=== PATIENT | male | born 1960 | race Caucasian/White ===

== ENCOUNTER 2019-03-06 13:25 | Emergency (ER) | payer OTHER ==
--- NOTE | 2019-03-06 14:59 | ER Document Report ---
HPI - HPI Patient complains to provider of: Shoulder injury Time Seen by Provider: 03/06/19 14:58 Onset: Just prior to arrival Onset/Duration: Sudden Pain Level: Denies Context: Patient states that he had been drinking beer today and was walking up some stairs and tripped falling landing on his right shoulder. Patient with tenderness to right clavicle. Patient denies any head injury, chest pain, loss of consciousness, nausea or vomiting. Patient states he was drinking because he just found out that his father today. Patient denies any other injury. Patient declines needing any pain medication at this time. Associated Symptoms: Other - Clavicle pain. denies: Chest pain, Productive cough, Headache, Vomiting Exacerbated by: Movement Relieved by: Denies Similar symptoms previously: No Recently seen / treated by doctor: No - ROS ROS below otherwise negative: Yes Systems Reviewed and Negative: Yes All other systems reviewed and negative - NEURO Neurology: DENIES: Headache, Weakness - CARDIOVASCULAR Cardiovascular: DENIES: Chest pain - RESPIRATORY Respiratory: DENIES: Trouble Breathing, Coughing - GASTROINTESTINAL Gastrointestinal: DENIES: Nausea, Patient vomiting - MUSCULOSKELETAL Musculoskeletal: REPORTS: Extremity pain - Right clavicle. DENIES: Back Pain, Neck Pain - DERM Skin Color: Normal Skin Problems: None Past Medical History - General Information source: Patient - Social History Smoking Status: Former Smoker Chew tobacco use (# tins/day): No Frequency of alcohol use: Occasional Drug Abuse: None Family History: Reviewed & Not Pertinent Patient has suicidal ideation: No Patient has homicidal ideation: No Endocrine Medical History: Reports: Hx Diabetes Mellitus Type 2 Renal/ Medical History: Denies: Hx Peritoneal Dialysis Surgical Hx: Negative Vertical Provider Document - CONSTITUTIONAL Agree With Documented VS: Yes Exam Limitations: No Limitations General Appearance: WD/WN, No Apparent Distress - INFECTION CONTROL TRAVEL OUTSIDE OF THE [place] IN LAST 30 DAYS: No - HEENT HEENT: Atraumatic, Normocephalic - NECK Neck: Normal Inspection. negative: Lymphadenopathy-Left, Lymphadenopathy-Right - RESPIRATORY Respiratory: Breath Sounds Normal, No Respiratory Distress - CARDIOVASCULAR Cardiovascular: Regular Rhythm, No Murmur, Tachycardia - BACK Back: Normal Inspection - MUSCULOSKELETAL/EXTREMETIES Musculoskeletal/Extremeties: Tender - Right medial clavicular tenderness with swelling, no shoulder joint tenderness - NEURO Level of Consciousness: Awake, Alert, Appropriate Motor/Sensory: No Motor Deficit - DERM Integumentary: Warm, Dry, No Rash Course - Re-evaluation Re-evalutation: 03/06/19 16:41 Patient sleeping, arouses easily to voice. Patient advised of x-ray report findings. Patient encouraged to follow-up with orthopedics as soon as he returns home. Patient does have an orthopedic doctor that he has seen in the past. Patient advised not to drink alcohol and mix the pain medication together. - Vital Signs Vital signs: Temp Pulse Resp BP Pulse Ox 98.1 F 117 H 16 114/80 95 03/06/19 14:04 03/06/19 14:04 03/06/19 14:04 03/06/19 14:04 03/06/19 14:04 - Diagnostic Test Radiology reviewed: Image reviewed, Reports reviewed Procedures - Immobilization Right Arm Pre-Proc Neuro Vasc Exam: Normal Immobilizer type: Shoulder immobilizer Performed by: PCT Post-Proc Neuro Vasc Exam: Normal Alignment checked and good: Yes Discharge - Discharge Clinical Impression: Clavicle fracture Qualifiers: Encounter type: initial encounter Clavicle location: sternal end Fracture type: closed Fracture alignment: posteriorly displaced Laterality: right Qualified Code(s): S42.014A - Posterior displaced fracture of sternal end of right clavicle, initial encounter for closed fracture Condition: Stable Disposition: HOME, SELF-CARE Instructions: Fractured Clavicle ([facility]), Oral Narcotic Medication ([facility]), Sling as Treatment ([facility]) Additional Instructions: Return immediately for any new or worsening symptoms Followup with your primary care provider, call tomorrow to make a followup appointment Follow-up with orthopedics for further evaluation, call Saturday for an appointment. Wear shoulder immobilizer only while awake. Prescriptions: Hydrocodone/Acetaminophen [[place] 5-325 mg Tablet] 1 tab PO Q6 PRN #15 tablet PRN Reason: Referrals: [id number] [Provider Group] - 03/09/19
--- NOTE | 2019-03-06 15:26 | RADIOLOGY REPORT (SQ) ---
EXAM DESCRIPTION: CLAVICLE RIGHT COMPLETED DATE/TIME: 03/06/2019 3:17 pm REASON FOR STUDY: fall, clavicle pain COMPARISON: None. NUMBER OF VIEWS: Two views. TECHNIQUE: Frontal and angled images were acquired of the right clavicle. LIMITATIONS: None. FINDINGS: MINERALIZATION: Normal. BONES: Fracture of the proximal clavicle with displacement. SOFT TISSUES: No obvious swelling or foreign body. OTHER: No other significant finding. IMPRESSION: Fracture of the proximal clavicle. TECHNICAL DOCUMENTATION: JOB ID: [id number] [employer]- All Rights Reserved Reading location - IP/workstation name: [email or web address]
[2019-03-06] MEDS ORDERED: IBUPROFEN 800 MG TABLET PO ONE (16:40)
[2019-03-06] MEDS ORDERED: LIDOCAINE 5% (700 MG) TRANSDERMAL ADH..PATCH TP ONE (16:41)
[2019-03-06 17:30] VITALS: BP 113/76
== END 2019-03-06 17:30 | disposition home or self-care (01) ==
LOC: ER 13:25
DX: S42.014A Posterior displaced fracture of sternal end of right clavicle, initial encounter for closed fracture (principal); M25.511 Pain in right shoulder; W10.9XXA Fall (on) (from) unspecified stairs and steps, initial encounter; Z87.891 Personal history of nicotine dependence; E11.9 Type 2 diabetes mellitus without complications
CPT/HCPCS: 99283; 73000; L3650